=== PATIENT | female | born 1985 ===

== ENCOUNTER 2017-01-08 10:35 | Emergency (ER) | payer MEDICAID ==
[2017-01-08 11:04] VITALS: TEMP 98.6
[2017-01-08] MEDS ORDERED: Sodium Chloride 0.9% 1,000 ML IV STA (11:22)
--- NOTE | 2017-01-08 11:43 | ED PDOC ---
Arrival/HPI <Barb Burroughs - Last Filed: 01/08/17 12:52> <Jose Mckeon - Last Filed: 01/08/17 17:36> - General Chief Complaint: Abdominal Pain Time Seen by Provider: 01/08/17 10:40 - History of Present Illness Narrative History of Present Illness (Text): 01/08/17 11:23 31 y/o F w/ no PMHx presents to the ED c/o abd pain and vomiting. Pt reports sudden onset of RUQ abd pain and vomiting last evening. Pt states Sx similar to when she was Dx w/ gallstones. Pt had lap rahul ~4yrs ago. Pt admits to bilious vomiting and dark green liquid stool. Pt denies blood or coffee-ground emesis. Pt admits to poor PO intake since last evening. Vomiting has since stopped but RUQ pain is worsening w/ radiation across abd. Pt reports attending a picnic this weekend at which she ate a fattier diet than usual. Pt also reports a fellow picnic member w/ stomach issues. Pt denies F/C, CP, SOB. (Barb Burroughs) Past Medical History - Provider Review Nursing Documentation Reviewed: Yes - Infectious Disease Hx of Infectious Diseases: None - Psychiatric Hx Substance Use: No - Surgical History Hx Cholecystectomy: Yes Hx Tubal Ligation: Yes - Anesthesia Hx Anesthesia: Yes Hx Anesthesia Reactions: No <Barb Burroughs - Last Filed: 01/08/17 12:52> Family/Social History - Physician Review Nursing Documentation Reviewed: Yes Family/Social History: No Known Family HX Smoking Status: Unknown If Ever Smoked Hx Alcohol Use: Yes Hx Substance Use: No <Barb Burroughs - Last Filed: 01/08/17 12:52> Allergies/Home Meds <Barb Burroughs - Last Filed: 01/08/17 12:52> <Jose Mckeon - Last Filed: 01/08/17 17:36> Allergies/Adverse Reactions: Allergies No Known Allergies Allergy (Verified 01/08/17 11:04) Home Medications: Home Meds Medication Instructions Recorded Confirmed No Known Home Med 01/08/17 01/08/17 Review of Systems - Physician Review All systems were reviewed & negative as marked: Yes - Review of Systems Constitutional: absent: Fevers Respiratory: absent: SOB <Barb Burroughs - Last Filed: 01/08/17 12:52> Physical Exam Vital Signs Reviewed: Yes Temperature: Afebrile Blood Pressure: Normal Pulse: Regular Respiratory Rate: Normal Appearance: Positive for: Non-Toxic, Uncomfortable Pain Distress: Moderate Mental Status: Positive for: Alert and Oriented X 3 - Systems Exam Head: Present: Atraumatic, Normocephalic Pupils: Present: PERRL Extroacular Muscles: Present: EOMI Conjunctiva: Present: Normal Mouth: Present: Moist Mucous Membranes Respiratory/Chest: Present: Clear to Auscultation, Good Air Exchange. No: Respiratory Distress, Accessory Muscle Use Cardiovascular: Present: Regular Rate and Rhythm, Normal S1, S2. No: Murmurs Abdomen: Present: Tenderness (RUQ, epigastric TTP), Normal Bowel Sounds, Guarding (voluntary). No: Distention, Peritoneal Signs, Rebound Upper Extremity: Present: Normal Inspection Lower Extremity: Present: Normal Inspection. No: Edema Neurological: Present: GCS=15, Speech Normal Skin: Present: Warm, Dry, Normal Color Psychiatric: Present: Alert, Oriented x 3, Normal Insight, Normal Concentration <Barb Burroughs - Last Filed: 01/08/17 12:52> Medical Decision Making Re-evaluation Time: 12:35 Reassessment Condition: Re-examined, Improved - Lab Interpretations I have reviewed the lab results: Yes Interpretation: No clinic. lab abnormalty <Barb Burroughs - Last Filed: 01/08/17 12:52> <oJse Mckeon - Last Filed: 01/08/17 17:36> ED Course and Treatment: 01/08/17 12:09 31 y/o F w/ abd pain - CBC, CMP, Lipase - Urinalysis - Pepcid - Toradol pending POC. - reassess and dispo 01/08/17 12:34 Pt reports improved pain after Pepcid. no vomiting in ED. Discharge pending PO challenge. 01/08/17 12:52 Pt tolerating PO intake. Vomiting resolved. Pain improved w/ Pepcid. Pt cleared for discharge w/ instructions to follow up w/ PMD. (Barb Burroughs) Patient seen and examined with resident. Came up with treatment and disposition plan with resident. A 31 year old female with right upper abdominal pain. No acute findings on patient's labs symptoms improved with Pepcid On reevaluation, patient reports that she feels much better and would like to be discharged home. Patient's repeat abdominal exam is soft, nontender, non distended with positive bowel sounds in all 4 quadrants and no peritoneal signs. Patient is tolerating PO without any difficulty. Pt states she understands to return to the ER right away for new or worsening symptoms or for inability to f/u with PMD or specialist as instructed. Patient states that she fully agrees with and understands discharge instructions. States that she agrees with the plan and disposition. Verbalized and repeated discharge instructions and plan. I have given the patient opportunity to ask any additional questions. (Jose Mckeon) - Lab Interpretations Lab Results: 01/08/17 11:50 01/08/17 11:50 Lab Results 01/08/17 11:50: Sodium 136, Potassium 3.5 L, Chloride 102, Carbon Dioxide 27, Anion Gap 11, BUN 11, Creatinine 0.7, Est GFR ( Amer) > 60, Est GFR (Non- Af Amer) > 60, Random Glucose 92, Calcium 8.9, Total Bilirubin 1.2, AST 19, ALT 24, Alkaline Phosphatase 65, Total Protein 7.9, Albumin 4.4, Globulin 3.5, Albumin/Globulin Ratio 1.2, Lipase 20 L 01/08/17 11:50: WBC 6.9, RBC 4.83, Hgb 14.4, Hct 41.4, MCV 85.7, MCH 29.8, MCHC 34.8, RDW 12.8, Plt Count 191, MPV 9.4, Gran % 72.5 H, Lymph % (Auto) 20.8 L, [place] % (Auto) 6.0, Eos % (Auto) 0.7 L, Baso % (Auto) 0.0, Gran # 5.00, Lymph # 1.4, [place] # 0.4, Eos # 0.1, Baso # 0.00 - Medication Orders Current Medication Orders: Discontinued Medications Famotidine (Pepcid) 20 mg IVP STAT STA Stop: 01/08/17 11:23 Last Admin: 01/08/17 11:56 Dose: 20 mg Sodium Chloride (Sodium Chloride 0.9%) 1,000 mls @ 999 mls/hr IV .Q1H1M STA Stop: 01/08/17 12:22 Last Admin: 01/08/17 11:55 Dose: 999 mls/hr Ketorolac Tromethamine (Toradol) 30 mg IVP STAT STA Stop: 01/08/17 12:16 Last Admin: 01/08/17 13:26 Dose: 30 mg <Barb Burroughs - Last Filed: 01/08/17 12:52> - Scribe Statement The provider has reviewed the documentation as recorded by the Scribe <Jose Mckeon - Last Filed: 01/08/17 17:36> - Scribe Statement Etelvina Munoz Provider Scribe Attestation: All medical record entries made by the Scribe were at my direction and personally dictated by me. I have reviewed the chart and agree that the record accurately reflects my personal performance of the history, physical exam, medical decision making, and the department course for this patient. I have also personally directed, reviewed, and agree with the discharge instructions and disposition. (Jose Mckeon) Disposition/Present on Arrival - Present on Arrival Any Indicators Present on Arrival: No History of DVT/PE: No History of Uncontrolled Diabetes: No Urinary Catheter: No History of Decub. Ulcer: No History Surgical Site Infection Following: None - Disposition Have Diagnosis and Disposition been Completed?: Yes Disposition Time: 12:54 <Barb Burroughs - Last Filed: 01/08/17 12:52> <Jose Mckeon - Last Filed: 01/08/17 17:36> - Disposition Diagnosis: Abdominal pain Disposition: HOME/ ROUTINE Condition: GOOD Discharge Instructions (ExitCare): Gastritis (ED), Dehydration (ED), Gastroenteritis (ED), Food Poisoning (ED) Additional Instructions: Follow up with primary doctor within 1 week May take OTC heartburn meds &/or tylenol for abd pain Return to the ED if fever >100.4 or symptoms do not improve or worsen. Referrals: Basilia Rae MD [Primary Care Provider] - Follow up with primary
[2017-01-08 12:02] LABS: ADD MANUAL DIFF? NO
[2017-01-08 12:10] LABS: EOS # 0.1 (0.0-0.7); EOS % 0.7 % (1.5-5.0); GRAN % 72.5 % (50.0-68.0); HEMATOCRIT 41.4 % (36.0-48.0); LYMPH # 1.4 (1.2-3.4); LYMPH % 20.8 % (22.0-35.0); MEAN CELL VOLUME 85.7 fL (80.0-105.0); MEAN CORPUSCULAR HEMOGLOBIN 29.8 pg (25.0-35.0); MEAN CORPUSCULAR HGB CONC 34.8 g/dl (31.0-37.0); MEAN PLATELET VOLUME 9.4 fl (7.0-11.0); MONO # 0.4 (0.1-0.6); PLATELET COUNT 191 10^3/uL (120.0-450.0); RED CELL DISTRIBUTION WIDTH 12.8 % (11.5-14.5); WHITE BLOOD COUNT 6.9 10^3/ul (4.5-11.0)
[2017-01-08 12:18] LABS: ALB/GLOB RATIO 1.2 (1.1-1.8); ALKALINE PHOSPHATASE 65 U/L (38-133); ALT/SGPT 24 U/L (7-56); AST/SGOT 19 U/L (15-39); BILIRUBIN,TOTAL 1.2 mg/dL (0.2-1.3); BLOOD UREA NITROGEN 11 mg/dL (7-21); CALCIUM 8.9 mg/dL (8.4-10.5); CARBON DIOXIDE 27 mmol/L (21-33); CHLORIDE 102 mmol/L (95-110); GFR AFRICAN-AMERICAN > 60; GLUCOSE,RANDOM 92 mg/dL (70-110); LIPASE 20 U/L (23-300); POTASSIUM 3.5 mmol/L (3.6-5.0); SODIUM 136 mmol/L (132-148); TOTAL PROTEIN 7.9 g/dL (5.8-8.3)
[2017-01-08 12:20] VITALS: PULSE 79
[2017-01-08 13:44] VITALS: BP 112/75; RESP 16; O2SAT 98
== END 2017-01-08 13:35 | disposition home or self-care (01) ==
LOC: ED 10:35
DX: R10.9 Unspecified abdominal pain (principal)
CPT/HCPCS: 80053; 83690; 85025; 96374; 96375; 99284; J1885; J7040